=== PATIENT | male | born 2000 | race Caucasian/White ===

== ENCOUNTER 2023-04-07 08:21 | Emergency (ER) | payer OTHER, SELFPAY ==
--- NOTE | ~2023-04-07 | XR_ITS ---
EXAMINATION: XR hand RT 2V DATE: 04/07/2023 09:07 INDICATION: Right hand injury and pain. TECHNIQUE: 2 views of right hand were obtained. COMPARISON: None. FINDINGS: There is a nondisplaced fracture base of fifth metacarpal. Joint spaces are normal. IMPRESSION: 1. Nondisplaced fracture of base of fifth metacarpal. Reviewed, dictated and finalized at location A.
[2023-04-07 08:28] VITALS: BP 129/85; PULSE 92; RESP 12; TEMP 36.4; O2SAT 100
[2023-04-07 09:41] VITALS: BP 126/92; PULSE 65; RESP 18; O2SAT 100
--- NOTE | 2023-04-07 10:06 | ED.UPPEXIN ---
HPI - Extremity Injury (Upper) General Chief Complaint: Extremity Injury, Upper Stated Complaint: left wrist pain Time Seen by Provider: 04/07/23 09:22 Source: patient Mode of arrival: ambulatory Limitations: no limitations History of Present Illness HPI narrative: Patient is a 23-year-old male who presents to the ED with report of right hand pain. Patient reports he accidentally slammed his right hand in a car door yesterday. He complains of pain mostly to his lateral lower hand near his wrist. Denies any numbness or tingling. Denies any other injuries. He has been taking Advil for pain without much relief. Related Data Allergies Allergy/AdvReac Type Severity Reaction Status Date / Time No Known Allergies Allergy Unverified 09/19/18 16:42 Review of Systems Review of Systems: CONSTITUTIONAL: Denies fever, chills, or sweats. MUSCULOSKELETAL: See HPI. NEUROLOGIC: Denies tingling, numbness, or weakness. All systems reviewed & are unremarkable except as noted in HPI and below PMFSH Past Medical History Medical History COVID-19 (~07/2021) positive on 07/29/2021 Hemoptysis (07/29/21) Exam Narrative: GENERAL: Well appearing, thin, non-toxic, in no acute distress. HEAD: Normocephalic, atraumatic. NECK: Supple. No adenopathy, no masses. RESPIRATORY: Airway patent, respirations nonlabored. Clear to auscultation bilaterally, no rales, rhonchi, wheezing. CARDIOVASCULAR: Regular rate and rhythm without murmurs, rubs, or gallops. Radial pulses 2+ and equal bilaterally. MUSCULOSKELETAL: Moves all extremities. No gross deformities. Mild limited ROM of finger flexion due to pain. TTP along 5th metacarpal, particularly proximally. Minimal swelling over dorsal lateral R hand. Sensation intact. SKIN: Warm, dry, normal color. No rashes. NEURO: A&O X3. Speech clear. Cranial nerves II-XII grossly intact. Steady gait. No ataxic movements. PSYCHIATRIC: Appropriate mood and affect. Normal interaction. Course Vital Signs Vital signs: Vital Signs Temperature 97.6 F 04/07/23 08:28 Pulse Rate 92 04/07/23 08:28 Respiratory Rate 12 04/07/23 08:28 Blood Pressure 129/85 04/07/23 08:28 Pulse Oximetry 100 04/07/23 08:28 Oxygen Delivery Room Air 04/07/23 08:28 Temperature 97.6 F 04/07/23 08:28 Pulse Rate 65 04/07/23 09:41 Respiratory Rate 18 04/07/23 09:41 Blood Pressure 126/92 H 04/07/23 09:41 Pulse Oximetry 100 04/07/23 09:41 Oxygen Delivery Room Air 04/07/23 08:28 MDM - Extremity Injury (Upper) MDM Narrative Medical decision making narrative: Patient?s injury is consistent with musculoskeletal etiology. No signs of neurologic or vascular compromise on physical examination. Compartments are soft without signs of compartment syndrome. XR R hand showing fracture of the base of the fifth metacarpal. This is consistent with exam and injury. Patient will be placed in ulnar gutter splint and provided with orthopedic information for follow-up. Pain medication sent to pharmacy. Patient is felt to be stable for discharge home and further outpatient management and treatment. Given return precautions. Discharged in stable condition. Medical Records Attestation: I reviewed the patient's medical records. Imaging Data Attestation: I personally reviewed and interpreted this imaging study as follows: Radiologist's impression: ITS Impressions Hand X-Ray 04/07/23 09:09 IMPRESSION: 1. Nondisplaced fracture of base of fifth metacarpal. Discharge Plan Discharge Clinical Impression: Fracture of fifth metacarpal bone of right hand Qualifiers: Encounter type: initial encounter Fracture type: closed Metacarpal location: base Fracture alignment: nondisplaced Qualified Code(s): S62.346A - Nondisplaced fracture of base of fifth metacarpal bone, right hand, initial encounter for closed fracture Patient Disposition: [facility]
[2023-04-07] MEDS: KETOROLAC (*BKC) 60 MG/2 ML VIAL IM (10:25)
== END 2023-04-07 10:32 | disposition home or self-care (01) ==
PROVIDERS: Emergency Provider Physician Assistant
DX: S62.346A Nondisplaced fracture of base of fifth metacarpal bone, right hand, initial encounter for closed fracture (principal); Z86.16 Personal history of COVID-19; W23.0XXA Caught, crushed, jammed, or pinched between moving objects, initial encounter
CPT/HCPCS: 29125; 73120; 96372; 99284; J1885

== ENCOUNTER 2023-07-09 08:12 | Emergency (ER) | payer OTHER, SELFPAY ==
--- NOTE | 2023-07-09 08:16 | ED.URI ---
HPI - URI/Sore Throat General Chief Complaint: Upper Respiratory Infection Stated Complaint: Sore Throat Time Seen by Provider: 07/09/23 08:16 Source: patient Mode of arrival: ambulatory Limitations: no limitations History of Present Illness HPI Narrative: Rony is a 23-year-old male patient presenting to the clinic today with complaints of a sore throat times 3-4 days. He reports he felt feverish last night. Having pain when swallowing. Currently rates his pain a 3/10. He denies any URI symptoms or cough. No known exposure to anyone with COVID, flu, or strep. MD elicited complaint: sore throat and nasal congestion Related Data Allergies Allergy/AdvReac Type Severity Reaction Status Date / Time No Known Allergies Allergy Verified 07/09/23 08:14 Review of Systems Review of Systems: Pertinent positives per HPI. Patient denies any rash, headache, visual changes, dizziness, cough, shortness of breath, chest pain, palpitations, nausea, vomiting, diarrhea, constipation, abdominal pain, or any urinary issues. [facility] Past Medical History Medical History COVID-19 (~07/2021) positive on 07/29/2021 Hemoptysis (07/29/21) Social History Social History Smoking status: Current every day smoker Comments At the time of my signature, I reviewed and agree with the nursing past medical, surgical, social, and family history. There is no relevant family history pertinent to the patient complaint. Exam Narrative: General: Well-developed, well nourished, in no apparent distress Head: Normocephalic, atraumatic Eyes: Pupils equally round and reactive to light bilaterally, EOM intact, sclera and conjunctive clear, no discharge, lids normal Ears: TMs intact and clear, ear canals clear, no drainage, grossly hearing normal. Nose: Nares patent, no discharge, no inflammation, no sinus tenderness. Mouth: Oral pharynx red with bilateral tonsillar enlargement right>left with exudate to the right tonsil, no masses, good dentition, MMM. Neck: Supple, trachea midline, enlargement of anterior cervical nodes, no thyroid masses or goiter palpable. Cardio: Regular rate and rhythm, s1 and s2 normal, no murmur appreciated. Resp: Clear to auscultation bilaterally, no rhonchi, rales, wheezing or rubs Course Course Emergency Course: Portions of this record may have been created with voice recognition software. Level of Care: Express Care Visit Vital Signs Vital signs: Vital signs reviewed MDM - URI/Sore Throat MDM Narrative Medical decision making narrative: At the time of visit patient is resting comfortably on the exam table. Strep screen was obtained and was positive in the clinic today. I suspect patient has strep pharyngitis. Prescription for amoxicillin was sent to the pharmacy and supportive measures were discussed with the patient he voiced understanding discharge instructions agrees to treatment plan. Differential Diagnosis Differential diagnosis: Likely upper respiratory infection, otitis media, sinusitis, viral infection, bronchitis, influenza, pharyngitis and other (COVID) Discharge Plan Discharge Clinical Impression: Acute streptococcal pharyngitis Patient Disposition: Home, Self-Care Condition: Stable Instructions: Antibiotic Form, Strep Throat (ED) Additional Instructions: Strep screen is positive in the clinic today. Take prescription medications only as prescribed-Amoxicillin Change your toothbrush in 24 hours after initiation of the antibiotics. Increase fluids and stay well hydrated Tylenol/motrin for pain/fever Flonase and OTC antihistamines as directed Vicks vapor rub to open sinuses Sinus rinses for congestion Cepacol spray, cough drops, throat lozenges, warm tea with honey/lemon, gargle salt water to soothe throat BRAT diet for diarrhea Clear liquids x 24 h
[2023-07-09 08:24] VITALS: BP 122/79; PULSE 108; RESP 16; TEMP 37.2; O2SAT 98
== END 2023-07-09 08:40 | disposition home or self-care (01) ==
PROVIDERS: Emergency Provider Nurse Practitioner Family; PCP Family Medicine
DX: J02.0 Streptococcal pharyngitis (principal); F17.200 Nicotine dependence, unspecified, uncomplicated; Z86.16 Personal history of COVID-19
CPT/HCPCS: 87880; 99213; G0463

== ENCOUNTER 2023-09-07 06:53 | Emergency (ER) | payer OTHER, SELFPAY ==
[2023-09-07] VITALS (7 sets, daily range): BP systolic 106–129; BP diastolic 62–86; PULSE 65–94; RESP 13–18; TEMP 37.2; O2SAT 100
--- NOTE | 2023-09-07 09:00 | ED.NAVMDI ---
HPI - Nausea/Vomiting/Diarrhea General Chief complaint: Nausea/Vomiting/Diarrhea Stated complaint: I think im dehydrated Time Seen by Provider: 09/07/23 08:59 Source: patient Mode of arrival: ambulatory Limitations: no limitations History of Present Illness HPI Narrative: Rony is a 23-year-old male patient presenting to the ER today with complaints of nausea, vomiting, and diarrhea. He reports symptoms started around 5:00 last evening. He reports that he feels as though he is dehydrated. He is not able to keep any fluids down and has had 2-3 episodes of diarrhea this morning. History of Hirschsprung disease. Denies any abdominal pain currently. States he is having some hunger pains intermittently. Related Data Allergies Allergy/AdvReac Type Severity Reaction Status Date / Time No Known Allergies Allergy Verified 09/07/23 08:47 Review of Systems Review of Systems: Pertinent positives per HPI. Patient denies any fever, chills, rash, headache, visual changes, dizziness, cough, runny nose, sore throat, shortness of breath, chest pain, palpitations, constipation, abdominal pain, or any urinary issues. [facility] Past Medical History Medical History Anxiety COVID-19 (~07/2021) positive on 07/29/2021 Current every day vaping Depression Encounter to establish care Hemoptysis (07/29/21) History of Hirschsprung's disease Strep pharyngitis Family History Family History Grandparent Heart disease Diabetes mellitus Father Diabetes mellitus Social History Social History Years smoked: 10 Smoking status: Current every day smoker Tobacco type: e-cigarettes/vaping Alcohol intake: never Substance use: never Lack of Transportation: No Lack of Food: Never True Current Housing: I Have Housing Concerned About Future Housing: No Difficulty Paying Gas/Electric Bills: No Difficulty Paying for Meds: No Currently Unemployed: No Education: High School Diploma/GED Difficulty w/ Childcare or Family Care: No Comments At the time of my signature, I reviewed and agree with the nursing past medical, surgical, social, and family history. There is no relevant family history pertinent to the patient complaint. Exam Narrative: General: Well-developed, thin, in no apparent distress Head: Normocephalic, atraumatic Eyes: Pupils equally round and reactive to light bilaterally, EOM intact, sclera and conjunctive clear, no discharge, lids normal Ears: TMs intact and clear, ear canals clear, no drainage, grossly hearing normal. Nose: Nares patent, clear nasal discharge, no inflammation, no sinus tenderness. Mouth: Oropharynx without lesions or masses, good dentition, MM dry. Neck: Supple, trachea midline, no enlargement of anterior or posterior cervical nodes, no thyroid masses or goiter palpable. Cardio: Regular rate and rhythm, s1 and s2 normal, no murmur appreciated. Resp: Clear to auscultation bilaterally anteriorly and posteriorly, no rhonchi, rales, wheezing or rubs Abdomen: Soft, pliable, bowel sounds present in all quadrants, non-tender to palpation, no organomegly, no CVAT tenderness. Course Course Emergency Course: Portions of this record may have been created with voice recognition software. Vital Signs Vital signs: Vital Signs Temperature 37.2 C 09/07/23 07:03 Pulse Rate 94 09/07/23 07:03 Respiratory Rate 18 09/07/23 07:03 Blood Pressure 120/77 09/07/23 07:03 Pulse Oximetry 100 09/07/23 07:03 Oxygen Delivery Room Air 09/07/23 07:03 Temperature 37.2 C 09/07/23 07:03 Pulse Rate 78 09/07/23 08:59 Respiratory Rate 16 09/07/23 08:47 Blood Pressure 107/78 09/07/23 08:59 Pulse Oximetry 100 09/07/23 08:47 Oxygen Delivery Room Air 09/07/23 07:03 Vital signs re
[2023-09-07 09:09] LABS: Basophils Percent Auto 0.3 % (0.2-1.2); Hematocrit 49.1 % (42.0-52.0); Hemoglobin 16.1 g/dL (14.0-18.0); Immature Granulocyte Absolute 0.03 K/mm3 (0.00-0.031); Immature Granulocyte Percent A 0.3 % (0-0.5); Lymphocytes Absolute Auto 0.25 K/mm3 (0.9-3.2); Lymphocytes Percent Auto 2.4 % (18.3-44.2); Mean Corpuscular HGB Conc 32.8 g/dl (32-36); Mean Corpuscular Hemoglobin 29.3 pg (26-34); Mean Corpuscular Volume 89.3 fl (80-100); Mean Platelet Volume 10.6 fl (7.4-10.4); Monocytes Absolute Auto 0.5 K/mm3 (0.1-0.6); Monocytes Percent Auto 4.4 % (2.6-8.5); Neutrophils Absolute Auto 9.8 K/mm3 (1.3-6.7); Neutrophils Percent Auto 92.6 % (45.5-73.1); Platelet Count Result 244 k/mm3 (150-375); Red Cell Distribution Width 12.7 % (11.5-14.5); White Blood Count 10.6 K/mm3 (4.5-10.0)
[2023-09-07 09:13] LABS: Appearance Urine Clear (Clear); Bacteria Urine None Seen /hpf; Bilirubin Urine Negative (Negative); Blood Urine Trace (Negative); Color Urine Dark Yellow (Yellow); Glucose Urine UA Negative (Negative); Ketones Urine 2+ mg/dL (Negative); Leukocyte Esterase Ur Negative LEU/UL (Negative); Nitrate Urine Negative (Negative); Protein Urine 1+ mg/dL (Negative); Squamous Epithelial Cell Urine Occasional /hpf (Few); WBC Urine 0-5 /hpf; pH Urine 5.5 (5.0-9.0)
[2023-09-07] MEDS: ONDANSETRON INJ 4 MG/2 ML VIAL IV PUSH (09:19)
[2023-09-07] MEDS: SODIUM CHLORIDE 0.9% IV 1,000 ML 999 ML IV CONT ×2 (09:19→10:05)
[2023-09-07 09:25] LABS: Albumin Level 5.3 g/dL (3.5-5.1); Alkaline Phosphatase 60 U/L (38-126); Anion Gap 13 mmol/L (8-16); Aspartate Amino Transferase 27 U/L (17-59); Bilirubin,Total 1.2 mg/dL (0.2-1.3); Blood Urea Nitrogen 24 mg/dL (9-20); Carbon Dioxide 25 mmol/L (22-30); Chloride 104 mmol/L (98-107); Estimated CRCL calculation 75 ml/min; Estimated Glomerular Filt Rate > 60; Glucose 132 mg/dL (65-110); Lipase 51 U/L (23-300); Potassium 3.7 mmol/L (3.4-5.0); Sodium 142 mmol/L (137-145)
[2023-09-07 09:27] LABS: Add Urine Microscopic? YES; Specific Grav Ur 1.039 (1.001-1.035)
[2023-09-07 09:32] LABS: Alanine Aminotransferase 22 U/L (6-50)
[2023-09-07 10:12] LABS: Influenza A QL RT-PCR Negative (Negative); Influenza B QL RT-PCR Negative (Negative); SARS-CoV-2 RNA PCR Negative (Negative)
== END 2023-09-07 11:26 | disposition home or self-care (01) ==
PROVIDERS: Student in an Organized Health Care Education/Training Program; Emergency Provider Nurse Practitioner Family; PCP Family Medicine
DX: K52.9 Noninfective gastroenteritis and colitis, unspecified (principal); E86.0 Dehydration; F17.290 Nicotine dependence, other tobacco product, uncomplicated; F41.9 Anxiety disorder, unspecified; F32.A Depression, unspecified
CPT/HCPCS: 36415; 80053; 81001; 83690; 85025; 87636; 96361; 96374; 99284; J2405; J7030